=== PATIENT | male | born 1955 | race Caucasian/White ===

== ENCOUNTER → 2020-08-24 | Outpatient (CLI) | payer MEDICARE ==
[~2020-08-24] MED LIST: COZAAR 25MG25 MG/TAB PO; GLUCOPHAGE500 MG/TAB PO; MILLIPRED DP5 MG PO
[2020-08-24 12:19] LABS: HEMOGLOBIN 13.4 g/dl (13.5-18.0); MEAN CELL VOLUME 92 fl (80.0-100.0); MEAN CORPUSCULAR HEMOGLOBIN 32 pg (27.0-31.0); MEAN CORPUSCULAR HGB CONC 34 g/dl (33.0-37.0); MEAN PLATELET VOLUME 9.6 fl (7.4-10.4); PLATELET COUNT 291 K/mm3 (130-400); RED BLOOD COUNT 4.26 M/mm3 (4.20-5.60); REDCELL DISTRIBUTION WIDTH-CV 12.2 % (11.5-14.5)
[2020-08-24 13:04] LABS: ERYTHROCYTE SEDIMENTATION RATE 69 mm/hr (0-30)
[2020-08-24 13:23] LABS: SYNOVIAL FLUID APPEARANCE TURBID; SYNOVIAL FLUID COLOR YELLOW; SYNOVIAL FLUID RBC 12000 /mm3 (0-0); SYNOVIAL FLUID WBC 111 /mm3 (200-600)
== END ==
LOC: ZCOL.LAB 11:54
PROVIDERS: Orthopaedic Surgery
DX: M25.561 Pain in right knee (principal)

== ENCOUNTER → 2020-08-24 | Outpatient (CLI) | payer MEDICARE | LOC: COL.LAB 11:21 | DX: M79.89 Other specified soft tissue disorders (principal) ==

== ENCOUNTER 2020-08-25 14:30 | Inpatient (IN) | payer MEDICARE ==
[2020-08-25] VITALS (11 sets, daily range): BP systolic 125–160; BP diastolic 55–99; PULSE 83–104; TEMP 97.7–98.8
[~2020-08-25] VITALS: Ht 182.9 cm; Wt 102.5 kg
[2020-08-25 13:22] LABS: ALBUMIN 4.2 gm/dL (3.5-5.0); BILIRUBIN,TOTAL 0.7 mg/dL (0.0-1.0); CALCIUM 9.3 mg/dL (8.4-10.2); CREATININE, serum 0.76 (0.66-1.25); TOTAL PROTEIN 8.2 gm/dL (6.4-8.2)
[~2020-08-25 14:30] MED LIST changes: -COZAAR 25MG25 MG/TAB PO; +COZAAR 50MG50 MG/TAB PO
--- NOTE | 2020-08-25 17:40 | NUR ---
PT TO ROOM 323 PER BED WITH REPORT FROM JUAN J COOK PACU @1700. PT IS A/O X3, LUNGS CTA, VSS, BOWEL SOUNDS PRESENT. OCCLUSIVE ADALBERTO WRAP OVER INCISION, WITH KNEE IMMOBILIZER INPLACE. POSITIVE PEDAL PULSES. ORIENTED PT TO ROOM AND CALL LIGHT. PT DENIES PAIN, N/V. IV PER PUMP TO PICC LINE IN [place]RA[place].
--- NOTE | 2020-08-25 20:18 | NUR ---
RECEIVED CHANGE OF SHIFT REPORT FROM DAY SHIFT NURSE. IV INFUSING WITH NO PROBLEMS. SEE eMAR FOR MEDS GIVEN, C/O R KNEE INTERMITTENT BURNING/STINGING PAIN. BRACE TO RLE IN PLACE. DENIES CHST PAIN/SHORTNESS OF BREATH. DENIES NAUSEA. DENIES NUMBNESS/TINGLING TO EXTREMITIES AT THIS TIME.
[2020-08-26 04:37] VITALS: BP 135/70; PULSE 86; TEMP 98.2
--- NOTE | 2020-08-26 07:25 | NUR ---
Sitting up in chair, finished breakfast, watching TV. Minimal pain in right knee at this time. Dressing to right knee CDI. Has brace on right knee. CMS intact to right lower extremity. Patient denies additional needs or concerns. Dr. Wilson in to see patient.
--- NOTE | 2020-08-26 07:39 | NUR ---
Theresa in surgery notified per Dr. Wilson that patient needs to be placed on surgery schedule for Saturday.
--- NOTE | 2020-08-26 07:39 | NUR ---
CHANGE OF SHIFT REPORT GIVEN TO DAY SHIFT NURSEDELGADO.
--- NOTE | 2020-08-26 07:43 | NUR ---
Message left for Dr. Urban to make sure that he is aware of consult per Dr. Wilson.
--- NOTE | 2020-08-26 07:50 | NUR ---
Dr. Urban calls back and is aware of referral and will review chart at this time and call back to talk with the patient.
[2020-08-26 07:54] VITALS: BP 145/59; PULSE 93; TEMP 98.7
--- NOTE | 2020-08-26 11:25 | NUR ---
Sitting up in chair watching TV. Brother was in to see patient. Offered ice to apply to right knee and patient declines at this time. Patient denies additional needs.
[2020-08-26 11:33] VITALS: BP 142/75; PULSE 98; TEMP 98.1
--- NOTE | 2020-08-26 14:18 | NUR ---
First visit from the pearl restorer. No needs right now.
[2020-08-26 15:32] VITALS: BP 127/66; PULSE 101; TEMP 97.7
--- NOTE | 2020-08-26 16:44 | NUR ---
Sitting up in chair watching TV. Having pain in the right knee and would like pain medication before it gets too bad. Administer [place] as prescribed. Patient denies any additional needs or concerns at this time.
[2020-08-26 19:27] VITALS: BP 126/68; PULSE 85; TEMP 99.1
--- NOTE | 2020-08-26 22:28 | NUR ---
Patient resting in bed with no complaints. Assessment and night medications given. Encouraged patient to call if he needed anything.
[2020-08-27] VITALS (7 sets, daily range): BP systolic 122–146; BP diastolic 64–71; PULSE 88–109; TEMP 98.2–99.3
--- NOTE | 2020-08-27 06:07 | NUR ---
Patient up to use bathroom this morning. Patient had no complaints of pain throughtout of the night and denied the need for any pain medication.
--- NOTE | 2020-08-27 08:02 | NUR ---
PATIENT SHIFT ASSESSMENT COMPELTED AND MORNING MEDICATIONS GIVEN AT THIS TIME. VSS. PATIENT REPORTING PAIN IN THE RLE THAT IS ACHY IN NATURE. PATIENT REQUESTING PAIN MEDICATION AT THIS TIME. PRN NORCO GIVEN. RLE DRESSING IS CD&I. CAP REFILL <3 SECONDS. CMS INTACT. IMMOBILIZER IN PLACE. CALL LIGHT WITHIN REACH. PATIENT DENIES ANY OTHER NEEDS AT THIS TIME.
--- NOTE | 2020-08-27 11:49 | NUR ---
Vancomycin Initial Dosing Pharmacy Note Ordering provider: Mauricio Wilson MD Indication/duration: Joint infection LABS: eCrCl ~ 100 mL/min Recommendation: Maintenance dose: 1.5 grams every 12 hours Trough goal: 15-20 ug/mL Pharmacy will continue to follow.
[2020-08-27 12:40] LABS: ALBUMIN 3.9 gm/dL (3.5-5.0); BILIRUBIN,TOTAL 0.6 mg/dL (0.0-1.0); CALCIUM 8.9 mg/dL (8.4-10.2); CREATININE, serum 0.79 (0.66-1.25); POTASSIUM 4.4 mmol/L (3.4-5.0); TOTAL PROTEIN 7.7 gm/dL (6.4-8.2)
[2020-08-27 12:45] LABS: BASO % 0.2 % (0.0-2.0); EOS % 0.2 % (0-4.0); GRAN # 6.7 (1.4-6.5); GRAN % 80.5 % (42.2-75.2); HEMATOCRIT 37.7 % (42.0-52.0); HEMOGLOBIN 12.6 g/dl (13.5-18.0); LYMPH # 0.7 (1.2-3.4); LYMPH % 8.9 % (20.0-51.0); MEAN CELL VOLUME 92 fl (80.0-100.0); MEAN CORPUSCULAR HEMOGLOBIN 31 pg (27.0-31.0); MEAN CORPUSCULAR HGB CONC 33 g/dl (33.0-37.0); MEAN PLATELET VOLUME 9.7 fl (7.4-10.4); MONO # 0.7 (0.1-0.6); MONO % 8.9 % (1.7-9.3); PLATELET COUNT 306 K/mm3 (130-400); REDCELL DISTRIBUTION WIDTH-CV 11.9 % (11.5-14.5)
[2020-08-27 12:53] LABS: C-REACTIVE PROTEIN 17.2 mg/dL (0.0-0.9)
[2020-08-27 13:08] LABS: ERYTHROCYTE SEDIMENTATION RATE 74 mm/hr (0-30)
--- NOTE | 2020-08-27 13:09 | NUR ---
Chaplain kim and offered support with patient.
--- NOTE | 2020-08-27 14:32 | NUR ---
Plans to return to [place], [place] with his brother as sonia Matos . . Patient reports his Dr. is Kelsey Miles. Rx obtained from [facility] in [place]. No POA on file denies having on setup. No [facility] services and does not believe they need at this time. Patient reports having outpatient PT is the past and would prefer it. Patient shares that he uses a walker for mobility and still drives. Will continue to monitor.
--- NOTE | 2020-08-27 19:00 | NUR ---
PATIENT HAD AN UNEVENTFUL DAY. PATIENT GAVE HIMSELF A BATH WITH WARM WIPES. PATIENT ABLE TO TRANSFER SELF FROM BED TO THE CHAIR BY HIMSELF. REPORT GIVEN TO ONCOMING NURSE.
--- NOTE | 2020-08-27 20:00 | NUR ---
PT AWAKE, ALERT AND ORIENTED X4. HAS RT PICC, FLUSHES WELL. IV ANTIBIOTIC INFUSING WITHOUT PROBLEM. REPORTS PAIN TO RT KNEE, NORCO GIVEN. RT KNEE IN IMMOBILIZER, HAS DRSG AND ADALBERTO WRAP TO RT LEG, CSM INTACT. VOIDING PER URINAL, YELLOW URINE.
--- NOTE | 2020-08-28 04:00 | NUR ---
PT AWAKE, DENIES NEED FOR PAIN MEDS AT THIS TIME.
[2020-08-28 04:02] VITALS: BP 141/75; PULSE 85; TEMP 98.7
[2020-08-28 07:55] VITALS: BP 127/72; PULSE 110; TEMP 98.6
--- NOTE | 2020-08-28 08:00 | NUR ---
Patient resting in bed eating breakfast at this time. Patient is alert and oriented, answers questions appropriately. Dressing to right knee is CDI, immobilizer in place. PICC to RUE. Patient reports that pain is tolerable at this time, will call when he needs pain control. Denies further needs at this time, call light within reach.
[2020-08-28 11:14] VITALS: BP 137/64; PULSE 96; TEMP 98.6
[2020-08-28 15:39] VITALS: BP 144/66; PULSE 92; TEMP 98.3
--- NOTE | 2020-08-28 17:53 | NUR ---
Patient resting in bed eating dinner at this time. Patient remains alert and oriented, answers questions appropriately. Patient reports pain is well controlled and denies nausea. Dressing to right knee remains CDI, immobilizer in place. Patient denies further needs, call light within reach.
[2020-08-28 20:13] VITALS: BP 139/77; PULSE 87; TEMP 98.1
--- NOTE | 2020-08-28 22:43 | NUR ---
Patient resting in bed. Patient requested a pain pill before bed so was given 2 NORCOs. Will reasses.
[2020-08-28 23:34] VITALS: BP 128/70; PULSE 88; TEMP 98.2
--- NOTE | 2020-08-28 23:36 | NUR ---
Patient states he is no longer having any pain.
[2020-08-29] VITALS (13 sets, daily range): BP systolic 121–141; BP diastolic 64–78; PULSE 86–107; TEMP 97.6–98.5
--- NOTE | 2020-08-29 04:53 | NUR ---
Patient resting comfortably in bed. No further complaints of pain.
--- NOTE | 2020-08-29 10:06 | NUR ---
Initial visit; Patient thanked Link Wire Fabric Machine Operator for looking in on him and offering God's blessings and keeping him in her prayers.
--- NOTE | 2020-08-29 12:30 | NUR ---
Patient is going down for surgery. Consent signed and on the chart. Pre-ops given as ordered. Had some problems with patients PICC line. For his Vanc trough was not able to pull blood from the purple line. After getting the blood from the red port and flushing well, was not able to flush before surgery. Notified Patrizia from [facility], she will not be able to see him before surgery but try later. Dr Urban changed the antibiotics. First dose of ancef given as ordered. No other changes at this time. Call light within reach.
--- NOTE | 2020-08-29 15:30 | NUR ---
Unable to flush red port. PICC intact. Occlusion. RN to obtain an order for cath-benito and instill.
--- NOTE | 2020-08-29 15:30 | NUR ---
Patient is back from surgery. He is alert and oriented. No complaints of pain or nausea. Dressing to right knee is C/D/I. CMS intact to BLE. No other changes at this time. Call light within reach.
--- NOTE | 2020-08-29 18:30 | NUR ---
Cath-benito ordered for patients PICC line. Attempted several times to get the cathflo into the PICC line. Was finally able to get it into the red line of the PICC line at 1820. Explained it needs to stay in for about 2 hours. Patient verbalized understanding. No other changes at this time. Call light within reach.
--- NOTE | 2020-08-29 20:45 | NUR ---
Pt is currently resting in bed. Pt was given pain medication by the charge nurse. Pt PICC is currently flushing well. Cath-benito was removed and the PICC was flushed with normal saline. Pt has no other concerns at this time. Pt has his call light within reach.
[2020-08-30 05:22] VITALS: BP 138/77; PULSE 86; TEMP 98.1
[2020-08-30 07:29] VITALS: BP 141/55; PULSE 92; TEMP 98.2
--- NOTE | 2020-08-30 08:14 | NUR ---
Reported off to JOYCE Sparks. Pt has his call light within reach and his bed is in lowest position. Pt was given pain medication at 0444 this morning. Ph was also given fresh ice to his right knee and it was repositioned at this time.
--- NOTE | 2020-08-30 08:26 | NUR ---
On 08/29 Coal Chute Worker met with the patient to revisit the discharge plan. The patient plans to return home with IV antibiotics. The antibiotics will need to be every 12 hours. He would like to to go the [facility] in [place] to do the infusions. BRANDON contacted [facility] and spoke to [facility]. She states they will be able to accomodate the patient. The fax # . Referral faxed. The orders will need to be sent when available. BRANDON collaborated the above information with the patient's nurse.
--- NOTE | 2020-08-30 11:00 | NUR ---
Patient is doing well this morning. Will be discharging home. Pain has been well controlled. No complaints of nausea. Discussed discharge plan with the patient. Will change dressing and instruct patient on how to do the dressing change at home. No other changes at this time. Call light within reach.
[2020-08-30 11:35] VITALS: BP 145/82; PULSE 93; TEMP 97.6
--- NOTE | 2020-08-30 14:00 | NUR ---
Afternoon ancef given. Changed dressing to right knee. Aquacel dressing placed to incsion. Incision well approximated, emir intact. Scant bright red drainage from incision. Explained to change dressing in one week from today. Explained how to care for his PICC line at home when it comes to showering. Patient is aware he will need to go to the hospital 3 times a day for his antibiotics. No other changes at this time. Call light within reach.
--- NOTE | 2020-08-30 15:30 | NUR ---
Patient has been discharge home. He is aware he needs a nother dose of ancef this evening. Explained how to cover PICC line for shower. Aquacel dressing sent with patient as ordered by Dr Wilson. Copies of discharge instructions sent with patient. All belongings packed up by patient. Patient walked out via wheel chair by Taryn VEGA.
== END 2020-08-30 15:30 | disposition home or self-care (01) | DRG 486 ==
LOC: SDCO 14:30 → SURG 15:55
PROVIDERS: Internal Medicine Infectious Disease; ADMIT Orthopaedic Surgery
PROC: 02HV33Z Insertion of Infusion Device into Superior Vena Cava, Percutaneous Approach (ICD-10-PCS; 2020-08-25)
PROC: 3E0U029 Introduction of Other Anti-infective into Joints, Open Approach (ICD-10-PCS; 2020-08-25)
PROC: 0SBC0ZZ Excision of Right Knee Joint, Open Approach (ICD-10-PCS; principal; 2020-08-25 14:30)
DX: M00.061 Staphylococcal arthritis, right knee (principal); L12.0 Bullous pemphigoid; M00.9 Pyogenic arthritis, unspecified; I10 Essential (primary) hypertension; E11.9 Type 2 diabetes mellitus without complications; Z79.84 Long term (current) use of oral hypoglycemic drugs; M13.861 Other specified arthritis, right knee; Z20.828 Contact with and (suspected) exposure to other viral communicable diseases; B95.61 Methicillin susceptible Staphylococcus aureus infection as the cause of diseases classified elsewhere
CPT/HCPCS: A9284; C1751; C1892; J0690; J0692; J1100; J1650; J2405; J2704; J2997; J3010; J3260; J3370; J7030; J7050; J7512; L1830